=== PATIENT | male | born 1945 | race Caucasian/White ===

== ENCOUNTER 2016-10-14 08:23 | Inpatient (IN) | payer MEDICARE, OTHER ==
[~2016-10-14] VITALS: Ht 165.1 cm; Wt 105.4 kg
[2016-11-01] VITALS (11 sets, daily range): BP systolic 107–152; BP diastolic 47–85; PULSE 60–86; TEMP 97.5–98.2
[2016-11-01] MEDS ORDERED: LIPITOR20 MG PO (06:38)
[2016-11-01] MEDS ORDERED: TYLENOL 8 HR PO (06:39)
[2016-11-02 02:29] VITALS: BP 108/49; PULSE 63; TEMP 98.5
[2016-11-02 04:48] VITALS: BP 118/50; PULSE 68; TEMP 98.6
[2016-11-02 07:22] LABS: BASO % 0.3 % (0.0-2.0); EOS % 0.1 % (0-4.0); GRAN # 8.5 (1.4-6.5); GRAN % 74.7 % (42.2-75.2); HEMATOCRIT 42.6 % (42.0-52.0); HEMOGLOBIN 14.7 g/dl (13.5-18.0); LYMPH # 1.5 (1.2-3.4); LYMPH % 13.3 % (20.0-51.0); MEAN CELL VOLUME 93 fl (80.0-100.0); MEAN CORPUSCULAR HEMOGLOBIN 32 pg (27.0-31.0); MEAN CORPUSCULAR HGB CONC 35 g/dl (33.0-37.0); MEAN PLATELET VOLUME 9.7 fl (7.4-10.4); MONO # 1.3 (0.1-0.6); MONO % 11.2 % (1.7-9.3); PLATELET COUNT 185 K/mm3 (130-400); RED BLOOD COUNT 4.59 M/mm3 (4.20-5.60); WHITE BLOOD COUNT 11.3 K/mm3 (4.8-10.8)
[2016-11-02 07:57] LABS: CALCIUM 8.6 mg/dL (8.4-10.2); CREATININE, serum 1.06 mg/dL (0.66-1.25); POTASSIUM 3.7 mmol/L (3.4-5.0)
[2016-11-02 09:29] VITALS: BP 119/71; PULSE 64; TEMP 98.1
[2016-11-02 13:19] VITALS: BP 120/47; PULSE 73; TEMP 98.6
[2016-11-02 17:43] VITALS: BP 114/50; PULSE 73; TEMP 98.2
[2016-11-02 21:27] VITALS: BP 133/59; PULSE 77; TEMP 98.2
[2016-11-03 02:20] VITALS: BP 126/58; PULSE 64; TEMP 98.6
[2016-11-03 05:31] VITALS: BP 144/64; PULSE 66; TEMP 98.7
[2016-11-03 09:41] VITALS: BP 140/63; PULSE 63; TEMP 98.4
== END 2016-11-03 10:50 | disposition home or self-care (01) | DRG 708 ==
LOC: SURG 11-01 05:11 → INPTSU 11-01 05:11 → SURG 11-01 07:30
PROVIDERS: Surgery; Urology
PROC: 0YU54JZ Supplement Right Inguinal Region with Synthetic Substitute, Percutaneous Endoscopic Approach (ICD-10-PCS; 2016-11-01)
PROC: 8E0W4CZ Robotic Assisted Procedure of Trunk Region, Percutaneous Endoscopic Approach (ICD-10-PCS; 2016-11-01)
PROC: 0VT04ZZ Resection of Prostate, Percutaneous Endoscopic Approach (ICD-10-PCS; principal; 2016-11-01 07:30)
PROC: 07BC4ZX Excision of Pelvis Lymphatic, Percutaneous Endoscopic Approach, Diagnostic (ICD-10-PCS; 2016-11-01 07:30)
PROC: 0WUF4KZ Supplement Abdominal Wall with Nonautologous Tissue Substitute, Percutaneous Endoscopic Approach (ICD-10-PCS; 2016-11-01 07:30)
DX: C61 Malignant neoplasm of prostate (principal); K42.9 Umbilical hernia without obstruction or gangrene; K40.90 Unilateral inguinal hernia, without obstruction or gangrene, not specified as recurrent; Z87.891 Personal history of nicotine dependence
CPT/HCPCS: A9284; C1713; C1781; E0710; J0360; J0690; J1100; J1885; J2270; J2405; J2704; J2710; J3010; J7120